=== PATIENT | male | born 1955 | race Caucasian/White ===

== ENCOUNTER 2021-05-29 09:50 | Outpatient (CLI) | payer BC, SELFPAY ==
--- NOTE | 2021-05-29 09:55 | CDU_ITS ---
Reason For Study: Carotid stenosis Rt. Velocities/BP Lt. Velocities/BP Prox CCA 72.1/13.4 cm/sec. Prox CCA 89.4/24.5 cm/sec. Mid CCA 72.1/18.6 cm/sec. Mid CCA 78.4/23.4 cm/sec. Dist CCA 70.8/17.3 cm/sec. Dist CCA 78.4/25.6 cm/sec. Prox ICA 74.7/18.6 cm/sec. Prox ICA 57.5/11.3 cm/sec. Mid ICA 60.4/23.9 cm/sec. Mid ICA 52/20.1 cm/sec. Dist ICA 61.7/22.6 cm/sec. Dist ICA 69.6/23.4 cm/sec. Rt. ICA/CCA = 1.04. Lt. ICA/CCA = 0.89. Prox ECA 76/17.3 cm/sec. Prox ECA 72.9/11.3 cm/sec. Rt. Vert. 47.6/14.6 cm/sec. Lt. Vert. 47.6/20.1 cm/sec. Right Extracranial There is intimal thickening but no significant atherosclerotic plaque noted in the right common carotid artery. There is intimal thickening but no significant atherosclerotic plaque noted in the right internal carotid artery. There is no significant atherosclerotic plaque noted in the right external carotid artery. Antegrade flow is noted in the right vertebral artery. Left Extracranial There is intimal thickening but no significant atherosclerotic plaque noted in the left common carotid artery. There is intimal thickening but no significant atherosclerotic plaque noted in the left internal carotid artery. There is no significant atherosclerotic plaque noted in the left external carotid artery. Antegrade flow is noted in the left vertebral artery. Procedure Carotid Duplex [id number]. This is a Carotid Duplex examination using B-mode, color flow and specral Doppler. Exam performed in department. VL/Carotid Duplex Ultrasound Interpretation Summary Mild (<50%) stenosis right extracranial internal carotid. Mild (<50%) stenosis left extracranial internal carotid. Flow within the vertebral arteries is antegrade bilaterally. Ordering Physician: Krissy Ball Referring Physician: Krissy Ball Performed By: Diana Valdez RVT
== END 2021-05-29 23:59 | disposition short-term general hospital (02) ==
LOC: CVS 09:53
PROVIDERS: PCP Internal Medicine; Referring Provider Internal Medicine; Visit Provider Internal Medicine
DX: I65.23 Occlusion and stenosis of bilateral carotid arteries (principal)
CPT/HCPCS: 93880

== ENCOUNTER → 2023-06-03 | Outpatient (CLI) | payer OTHER, SELFPAY ==
[2023-06-03 18:23] LABS: AST(SGOT) 56 U/L (15-37); Alanine Aminotransfer ALT/SGPT 92 U/L (16-61); Albumin, Serum 3.8 g/dL (3.2-5.0); Alkaline Phosphatase 52 U/L (45-117); GGTP 114 U/L (15-85); Globulin 4.1 g/dL (2.2-4.2); Protein, Total 7.9 g/dL (6.4-8.2)
[2023-06-03 18:59] LABS: Hepatitis B Surface Antigen Non-Reactive (Nonreactive); Hepatitis C Antibody Non-Reactive (Nonreactive)
== END | disposition home or self-care (01) ==
PROVIDERS: PCP Internal Medicine; Referring Provider Internal Medicine Gastroenterology; Visit Provider Internal Medicine Gastroenterology
DX: E83.119 Hemochromatosis, unspecified (principal)
CPT/HCPCS: 36415; 80076; 82977; 86803; 87340

== ENCOUNTER → 2023-08-15 | Outpatient (CLI) | payer MEDICARE, SELFPAY ==
--- NOTE | 2023-08-15 08:55 | US_ITS ---
STUDY: ABDOMINAL ULTRASOUND - RIGHT UPPER QUADRANT; ELASTOGRAPHY REASON FOR VISIT: Male, 68 years old. Hemachromatosis. TECHNIQUE: Ultrasound evaluation of the right upper quadrant was performed with real-time and static sexton-scale imaging. Point quantification shear wave elastography was performed ([employer]). TECHNICAL QUALITY: Adequate. COMPARISON: Comparison is made with prior study dated October 30, 2015. FINDINGS: Liver: The liver measures 17.7 cm. There is increased echogenicity consistent with fatty infiltration. The bile ducts are within normal limits. There is hepatic color flow. The direction of portal flow is hepatopetal. There is no demonstrated mass lesion. Median liver stiffness measured 6.8 kPa. Gallbladder: Normal distended gallbladder. The gallbladder wall measures 1.7 mm. There is a negative sonographic Dominguez''s sign. There is no pericholecystic fluid. There are no gallstones. There are 2, 3 mm gallbladder polyps. Common Bile Duct (C.B.D.): The common bile duct measures 6.2 mm. Pancreas: There is normal echogenicity of the visualized pancreas. There is no demonstrated pancreatic mass or cyst. Right Kidney: Normal size of the right kidney. The right kidney measures 10.8 cm x 5.3 cm x 6.6 cm. Normal renal cortex. The right cortex measures 1.7 cm. There is no demonstrated renal mass or cyst. There is no right hydronephrosis. US/ABD Limited w/ Elastography IMPRESSION: 1. Liver stiffness measures 6.8 kPa compatible with F2-F3 (Mild to moderate liver fibrosis) Metavir score. 2. Small gallbladder polyps. Electronically Signed: Abbe Schilling MD at 15:30 EDT ,
== END | disposition home or self-care (01) ==
PROVIDERS: PCP Internal Medicine; Referring Provider Internal Medicine Gastroenterology; Visit Provider Internal Medicine Gastroenterology
DX: E83.119 Hemochromatosis, unspecified (principal)
CPT/HCPCS: 76705; 76981

== ENCOUNTER 2024-02-09 17:51 | Emergency (ER) | payer MEDICARE, SELFPAY ==
[2024-02-09 17:52] VITALS: BP 157/93; PULSE 64; RESP 18; TEMP 36.6; O2SAT 96; BMI 30.2
--- NOTE | 2024-02-09 18:24 | EX.ED.UPPERE ---
HPI History of Present Illness Chief Complaint: Bite Detail of Chief Complaint: Dog bite left hand dorsal and volar surface Informant: patient Occured/Mechanism Comment: Family dog was hit by car. 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 The dog bit him and then . Onset/Context/Timing Onset: Hours Context: Sudden Onset Timing: Continuous Quality of Pain: Dull Location: Webspace between the left thumb and index finger and 2 puncture wounds then Current Severity: Mild Maximum Severity: Mild Worsened by: Palpation Relieved by: Not applicable Associated Symptoms Associated Symptoms: Negative for Parasthesia, Weakness or Loss of Funtion Narrative Narrative: Patient is a 68-year-old [id number] male presents with dog bite to his left hand on the dorsal and volar surface. This was due to trauma to family pet. His tetanus is unknown. He has no antibiotic allergies. He denies paresthesia, anesthesia or motor weakness. He denies loss of function. He is not on an anticoagulant. Tetanus Immunization: Unknown Prior similar symptoms: No Recent Illness/Hospitalization: No PFSH PFSH Home Medications ?Medication ?Instructions ?Recorded ?Last Taken ?Type atenolol 25 mg tablet 25 mg PO DAILY 04/17/16 Unknown History bacitracin zinc 500 unit/gram 1 applic topical BID #30 grams 04/17/16 Unknown Rx topical ointment hydrocodone-acetaminophen 5-325mg 1 - 2 tab PO Q4H PRN PRN Pain ##20 04/17/16 Unknown Rx 5mg-325mg omeprazole 20 mg capsule,delayed 20 mg PO DAILY 04/17/16 Unknown History release amoxicillin 875 mg-potassium 875 mg PO Q12H #6 TABLETS 02/09/24 Unknown Rx clavulanate 125 mg tablet Allergy/AdvReac Type Severity Reaction Status Date / Time latex Allergy Other Verified 02/09/24 17:54 Social History Smoking Status: Former smoker ROS ROS ED Integumentary Reports other Details: Dog bite previously described HPI narrative Neurologic Neurologic: Denies paresthesias or weakness Hematologic/Lymphatic Hematologic/Lymphatic: Denies easy bleeding or easy bruising EXAM Physical Exam Const Vital Signs: 02/09/24 17:52 Temperature 98 F Temperature Source Oral Pulse Rate 64 Respiratory Rate 18 Blood Pressure 157/93 H Blood Pressure Mean 114 Pulse Ox 96 Oxygen Delivery Method Room Air Positive well nourished and well developed General Appearance ED: well developed and NAD HEENT Reports moist mucous membranes normocephalic and atraumatic Eyes PERRL and EOMs intact bilaterally Resp normal respiratory effort Cardio regular rate and regular rhythm Extremity Extremity Narrative: There is a T-shaped laceration dorsal surface webspace between the thumb and index finger left dorsal side. There is 2 puncture wounds over the thenar eminence. The laceration on the dorsal side may require 1 stitch just to approximate because it is gaping in nature. Neuro oriented x3 and CN's II-XII intact bilaterally Neuro Narrative: Median, radial and ulnar function intact. Psych mental status grossly normal Skin Skin Narrative: Wounds previous described under the extremity portion of the physical exam Lesions: no lesions Rashes: no rashes MDM MDM MDM Narrative Medical decision making narrative: Update tenderness. Anesthetize the wound and irrigate. Determine after irrigation whether 1 stitch or 2 stitch placed loosely since it is a T shaped gaping wound. Will place on Augmentin which is the drug of choice for dog bite. Procedures Other Procedures Procedure(s): Total length of laceration is 1.8 cm. The wound was anesthetized with 1% lidocaine by local infiltration. The wound was irrigated with 250 cc of normal saline. Using 5-0 Ethilon a corner stitch was placed which approximated the centers of the stellate laceration. There peripheral aspects of the laceration were left open since they approximated well. Patient received his first dose of Augmentin. Discharge Plan Triage Chief Complaint: Bite ED Provider: Casey Taylor Dx/Rx/DC Orders Clinical Impression: Dog bite of left hand without complication, Laceration of hand, left Instructions: ED Animal Bite (General), ED Laceration, Hand: All Closures Prescriptions: New amoxicillin-pot clavulanate 875-125 mg tablet 875 mg PO Q12H Qty: 6 0RF No Action atenolol 25 MG tablet 25 mg PO DAILY Patient Comments: omeprazole 20 MG capsule,delayed release(DR/EC) 20 mg PO DAILY Patient Comments: bacitracin zinc 1 APPLIC ointment 1 applic topical BID Qty: 30 0RF hydrocodone-acetaminophen 1 TABLET tablet 1 - 2 tab PO Q4H PRN PRN (Reason: Pain) Qty: 20 0RF Primary Care Provider: Krissy Ball Referrals: Krissy Ball, DO [Primary Care Provider] - 2 Days for wound check Activity Restrictions/Additional Instructions: 1. Sutures to be removed in 7 to 10 days 2. Keep all wounds clean and dry 3. Apply bacitracin ointment 2-3 times a day to the laceration on the backside of your hand 4. If there is any concern for infection return to the emergency department immediately 5. Take antibiotics until gone Print Language: [place] Disposition Disposition: Home, Self Care
[2024-02-09] MEDS: Diphth,Pertuss(Acell),Tet Vac 0.5 ML Vial IM (18:41)
[2024-02-09] MEDS: Lidocaine 1% (20 ml mdv) 20 ML Vial INFILT (18:42)
[2024-02-09] MEDS: Amox/Clavulanate 875 MG Tablet PO (18:52)
== END 2024-02-09 18:54 | disposition home or self-care (01) ==
PROVIDERS: Emergency Provider Emergency Medicine; PCP Internal Medicine; Referring Provider Emergency Medicine; Visit Provider Emergency Medicine
DX: S61.412A Laceration without foreign body of left hand, initial encounter (principal); S61.432A Puncture wound without foreign body of left hand, initial encounter; Z23 Encounter for immunization; W54.0XXA Bitten by dog, initial encounter; Z79.899 Other long term (current) drug therapy; Z87.891 Personal history of nicotine dependence
CPT/HCPCS: 12001; 90471; 90715; 99284

== ENCOUNTER → 2024-02-16 | Outpatient (CLI) | payer MEDICARE, SELFPAY | END | disposition home or self-care (01) | LOC: LABSPEC 15:01 | PROVIDERS: PCP Internal Medicine; Referring Provider Dermatology; Visit Provider Dermatology | DX: S61.452A Open bite of left hand, initial encounter (principal); W54.0XXA Bitten by dog, initial encounter | CPT/HCPCS: 87070; 87077; 87205 ==

== ENCOUNTER → 2024-11-27 | Outpatient (CLI) | payer MEDICARE, SELFPAY ==
--- NOTE | 2024-11-27 08:42 | US_ITS ---
PROCEDURE: ABD LIMITED W/ ELASTOGRAPHY REASON FOR EXAM: FATTY LIVER COMPARISON: None. TECHNIQUE: Right upper quadrant abdominal ultrasound. Rach ElastQ Imaging shear wave elastography for non-invasive assessment of liver tissue stiffness. Rach EPIQ Elite. FINDINGS: LIVER: Size: Unremarkable Length: 16.1 cm Echotexture: Diffusely echogenic suggesting fatty infiltration Contour: Normal Lesions: None identified Elastography: EQI Med: 10.3 kPa EQI Med Stewart: 1.84 m/s IQR/Med: 13.3 %* GALLBLADDER: There is a 3 mm x 3 mm x 2 mm gallbladder polyp. COMMON BILE DUCT: Normal measuring 4.3 mm . PANCREAS: Normal Visualized portions of the right kidney are unremarkable. No right upper quadrant ascites. US/ABD Limited w/ Elastography IMPRESSION: MODERATE TO SEVERE HEPATIC FIBROSIS Fatty infiltration of the liver. 3 mm x 3 mm x 2 mm gallbladder polyp. Reference Values: SRU <1.37 m/s (5.7kPa): No to mild fibrosis 1.37 m/s - 2.2 m/s: Moderate to severe fibrosis >2.2 m/s (15kPa): Significant fibrosis / cirrhosis METAVIR Score F2 or higher: 1.34 m/s (5.7kPa) F3 or higher: 1.55 m/s (7.3kPa) F4: 1.80 m/s (10kPa) * If the IQR/Med is >30%, the variance in the measurements is a large and the a ccuracy of the measurement may be in question. Reading Location: [facility]
== END | disposition home or self-care (01) ==
LOC: US 08:37
PROVIDERS: PCP Internal Medicine; Referring Provider Internal Medicine; Visit Provider Internal Medicine
DX: K76.0 Fatty (change of) liver, not elsewhere classified (principal)
CPT/HCPCS: 76705; 76981